=== PATIENT | female | born 1940 | race Caucasian/White ===

== ENCOUNTER 2019-11-20 13:45 | Emergency (ER) | payer OTHER ==
[~2019-11-20] VITALS: Ht 152.4 cm; Wt 63.0 kg
[2019-11-20 13:51] VITALS: Ht 152.4 cm; Wt 63.0 kg
[2019-11-20 17:36] VITALS: BP 161/74
== END 2019-11-20 17:36 | disposition home or self-care (01) ==
LOC: ED 13:45
DX: S01.01XA Laceration without foreign body of scalp, initial encounter (principal); S51.011A Laceration without foreign body of right elbow, initial encounter; S09.8XXA Other specified injuries of head, initial encounter; I10 Essential (primary) hypertension; E78.00 Pure hypercholesterolemia, unspecified; F03.90 Unspecified dementia, unspecified severity, without behavioral disturbance, psychotic disturbance, mood disturbance, and anxiety; I67.1 Cerebral aneurysm, nonruptured; W10.9XXA Fall (on) (from) unspecified stairs and steps, initial encounter; Y93.89 Activity, other specified; Y92.89 Other specified places as the place of occurrence of the external cause; Y99.8 Other external cause status
CPT/HCPCS: 90715; Q0092